=== PATIENT | female | born 1985 | race Caucasian/White ===

== ENCOUNTER 2016-08-27 12:23 | Emergency (ER) | payer BC ==
--- NOTE | 2016-08-27 12:50 | EDM.PDOC ---
ED HPI GENERAL MEDICAL PROBLEM - General Chief Complaint: General Stated Complaint: LIGHT HEADED Time Seen by Provider: 08/27/16 12:47 Source of Information: Reports: Patient, RN notes reviewed History Limitations: Reports: No limitations - History of Present Illness INITIAL COMMENTS - FREE TEXT/NARRATIVE: 31-year-old female presents emergency department today with complaints of lightheadedness bilateral numbness and tingling she feels like she's going to pass out and she was walking down the [place] does have allergy to celery however she did not eat any salary but there is a potential for exposure from cross contamination from the kitchen she denies any shortness of breath or chest pain no throat swelling Bilateral Hand Pain Score (Numeric/FACES): 0 - Related Data Allergies Allergy/AdvReac Type Severity Reaction Status Date / Time celery [Celery] Allergy Airway Verified 08/27/16 12:52 Tightness valdecoxib [From Bextra] Allergy Hives Verified 08/27/16 12:52 Home Meds: Home Meds Levalbuterol Tartrate [Xopenex HFA] 2 inhalation INH ASDIRECTED PRN 12/12/13 [ History] Past Medical History Respiratory History: Reports: Asthma Genitourinary History: Reports: Renal calculus 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 OB/BYN History: cystic ovary Other Musculoskeletal History: ACL tear - Infectious Disease History Infectious Disease History: Reports: Chicken pox - Past Surgical History Musculoskeletal Surgical History: Reports: Other (see below) Other Musculoskeletal Surgeries/Procedures:: ACL repair Social & Family History - Family History Cardiac: Reports: Hypertension - Tobacco Use Smoking Status *Q: Current Every Day Smoker Years of Tobacco use: 10 Packs/Tins Daily: 0.5 Used Tobacco, but Quit: No Second Hand Smoke Exposure: Yes - Alcohol Use Days Per Week of Alcohol Use: 2 Number of Drinks Per Day: 3 Total Drinks Per Week: 6 - Recreational Drug Use Recreational Drug Use: No ED ROS GENERAL - Review of Systems Review Of Systems: See Below Constitutional: Reports: no symptoms HEENT: Reports: No symptoms Respiratory: Reports: no symptoms Cardiovascular: Reports: Syncope GI/Abdominal: Reports: No symptoms : Reports: no symptoms Musculoskeletal: Reports: no symptoms Skin: Reports: no symptoms Neurological: Reports: tingling Psychiatric: Reports: No symptoms ED EXAM, GENERAL - Physical Exam Exam: See Below Free Text/Narrative:: General: female, not in any distress, alert and oriented x3 HEENT: head is atraumatic normocephalic, eyes pupils equal round reactive to light and accommodation sclera clear no conjunctivitis appreciated. Ears tympanic membranes clear and davey landmarks and light reflex are present bilaterally canals are clear. Nose no septal deviation, nares are clear, no blood present. Mouth mucosa is moist and pink no erythema or exudate noted in soft palate, tongue is midline uvula is midline, dentition is intact. Neck: Supple no thyromegaly no tracheal deviation. Nodes: Cervical nodes subclavicular nodes nontender no palpable lymphadenopathy noted. Lungs: clear to auscultation bilaterally with symmetrical respirations, no adventitious noise appreciated. CV: Regular rate and rhythm S1 and S2 appreciated no murmurs rubs or gallops noted. Abdomen: Soft, nontender, no palpable masses or organomegaly appreciated, no distention no guarding bowel sounds are present, . Neuro: Cranial nerves II through XII grossly intact Skin: Warm and dry, intact Extremities: No lower extremity edema appreciated, Course - Vital Signs Last Recorded V/S: Last Vital Signs Temp 97.9 F 08/27/16 12:47 Pulse 91 08/27/16 12:47 Resp BP 167/109 H 08/27/16 12:47 Pulse Ox 99 08/27/16 12:47 - Orders/Labs/Meds Orders: Active Orders 24 hr Category Date Time Status Cardiac Monitoring [RC] .As Directed Care 08/27/16 13:02 Active EKG Documentation Completion [RC] ASDIRECTED Care 08/27/16 13:03 Active CULTURE URINE [RM] Urgent Lab 08/27/16 14:16 Uncollected CULTURE URINE [RM] Urgent Lab 08/27/16 14:22 Uncollected EKG 12 Lead [EK] Stat Ther 08/27/16 13:03 Ordered Labs: Laboratory Tests 08/27/16 08/27/16 08/27/16 Range/Units 13:10 13:10 13:57 WBC 9.7 (4.5-11.0) K/uL RBC 4.44 (3.30-5.50) M/uL Hgb 14.4 (12.0-15.0) g/dL Hct 44.3 (36.0-48.0) % MCV 100 H (80-98) fL MCH 32 H (27-31) pg MCHC 33 (32-36) % Plt Count 324 (150-400) K/uL Neut % (Auto) 73 H (36-66) % Lymph % (Auto) 18 L (24-44) % [place] % (Auto) 7 H (2-6) % Eos % (Auto) 1 L (2-4) % Baso % (Auto) 1 (0-1) % Sodium 139 L (140-148) mmol/L Potassium 3.9 (3.6-5.2) mmol/L Chloride 102 (100-108) mmol/L Carbon Dioxide 27 (21-32) mmol/L Anion Gap 13.9 (5.0-14.0) mmol/L BUN 12 (7-18) mg/dL Creatinine 1.1 H (0.6-1.0) mg/dL Est Cr Clr Drug Dosing 76.46 mL/min Estimated GFR (MDRD) 58 L (>60) Glucose 108 H (74-106) mg/dL Calcium 8.8 (8.5-10.1) mg/dL Total Bilirubin 0.4 D (0.2-1.0) mg/dL AST 45 H (15-37) U/L ALT 95 H (12-78) U/L Alkaline Phosphatase 38 L (46-116) U/L CK-MB (CK-2) 1.0 (0-3.6) mg/mL Troponin I < 0.017 (0.000-0.056) ng/mL Total Protein 7.6 (6.4-8.2) g/dL Albumin 4.0 (3.4-5.0) g/dL Globulin 3.6 H (2.3-3.5) g/dL Albumin/Globulin Ratio 1.1 L (1.2-2.2) Urine Color Yellow Urine Appearance Clear Urine pH 6.0 (4.5-8.0) Ur Specific [place] 1.015 (1.008-1.030) Urine Protein Negative (NEGATIVE) mg/dL Urine Glucose (UA) Normal (NEGATIVE) mg/dL Urine Ketones Negative (NEGATIVE) mg/dL Urine Occult Blood Large (NEGATIVE) Urine Nitrite Negative (NEGATIVE) Urine Bilirubin Negative (NEGATIVE) Urine Urobilinogen Normal (NORMAL) mg/dL Ur Leukocyte Esterase Moderate (NEGATIVE) Urine RBC 5-10 H (0-5) Urine WBC 10-20 H (0-5) Ur Epithelial Cells Few Amorphous Sediment Few Urine Bacteria Moderate Urine Mucus Few Meds: Medications Discontinued Medications Generic Name Dose Route Start Last Admin Trade Name Ashley PRN Reason Stop Dose Admin Al Hydroxide/Mg Hydroxide 15 0 ml 08/27/16 13:03 08/27/16 13:08 ml/ Lidocaine HCl 15 ml PO 08/27/16 13:04 30 ml ONETIME ONE Administration Departure - Departure Time of Disposition: 14:24 Disposition: Home, Self-Care 01 Condition: good Clinical Impression: Pre-syncope Forms: ED Department Discharge Additional Instructions: urine culture was added if this is abnormal we will contact you with appropriate antibiotics, Please followup with your primary care provider in 7 days if not better, please call return to the emergency department with worsening of symptoms. - My Orders Last 24 Hours: My Active Orders 08/27/16 13:02 Cardiac Monitoring [RC] .As Directed 08/27/16 13:03 EKG Documentation Completion [RC] ASDIRECTED EKG 12 Lead [EK] Stat 08/27/16 14:16 CULTURE URINE [RM] Urgent 08/27/16 14:22 CULTURE URINE [RM] Urgent - Assessment/Plan Last 24 Hours: My Active Orders 08/27/16 13:02 Cardiac Monitoring [RC] .As Directed 08/27/16 13:03 EKG Documentation Completion [RC] ASDIRECTED EKG 12 Lead [EK] Stat 08/27/16 14:16 CULTURE URINE [RM] Urgent 08/27/16 14:22 CULTURE URINE [RM] Urgent Plan: Assessment Acuity = acute Site and laterality = presyncopal event with numbness and tingling in the hands Etiology = unclear etiology possibly related to salary allergy Manifestations = all symptoms now resolved Location of injury = home Lab values = CBC, CMP troponin unremarkable, EKG demonstrates sinus rhythm no significant ST changesurinalysis did have 5-10 RBCs cyst with hematuria and 10- 20 WBCs consistent with pyuria cultures pending Plan she had improvement combination of Benadryl and GI cocktail all symptoms have resolved certainly this a possibility this may be related to her salary allergy and recommend watchful waiting at this time follow up with primary care 3-5 days if no improvement, urine cultures pendingWill contact if the culture is positive she is asymptomatic at this time Patient was in agreement with the plan all questions were answered, they were instructed to return to the emergency department or call for worsening symptoms. This note was dictated using [employer] voice recognition software please call with any questions.
[2016-08-27] MEDS ORDERED: Alum Hydrox/Mag Hydrox/Simeth 15 ML, Lidocaine 2% 15 ML PO ONE ×2 (13:03)
[2016-08-27 15:02] VITALS: BP 142/89
== END 2016-08-27 15:03 | disposition home or self-care (01) ==
LOC: JP.ED 12:23
DX: R55 Syncope and collapse (principal); J45.909 Unspecified asthma, uncomplicated; F17.210 Nicotine dependence, cigarettes, uncomplicated; Z88.8 Allergy status to other drugs, medicaments and biological substances; Z79.899 Other long term (current) drug therapy
CPT/HCPCS: 36415; 80053; 81001; 82553; 84484; 85025; 87086; 93005; 99284; A9270

== ENCOUNTER 2016-12-30 21:21 | Emergency (ER) | payer BC ==
[2016-12-30 21:47] VITALS: BP 166/92
[2016-12-30] MEDS ORDERED: Alum Hydrox/Mag Hydrox/Simeth 15 ML, Lidocaine 2% 15 ML PO ONE ×2 (22:20)
--- NOTE | 2016-12-30 22:55 | EDM.PDOC ---
ED HPI GENERAL MEDICAL PROBLEM - General Chief Complaint: General Stated Complaint: PAIN IN CHEST Time Seen by Provider: 12/30/16 22:20 Source of Information: Reports: Patient History Limitations: Reports: No Limitations - History of Present Illness INITIAL COMMENTS - FREE TEXT/NARRATIVE: This patient is in with intense epigastric pain which she has been struggling with for several weeks. She has had a gallbladder ultrasound which was negative , laboratory workup at the clinic which showed elevated LFTs but no other specific findings and she was started on Protonix and encouraged to eat. Today after eating she had increased pain and it's been bothering her all day. No significant radiation to her back. She tried some Pepto-Bismol without relief. No fevers or chills, some pain radiates up into the substernal chest. No shortness of breath. 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) (She tried Pepto-Bismol and took one dose of Protonix) epigastric Pain Score (Numeric/FACES): 7 - Related Data Allergies Allergy/AdvReac Type Severity Reaction Status Date / Time celery [Celery] Allergy Airway Verified 12/30/16 22:05 Tightness valdecoxib [From Bextra] Allergy Hives Verified 12/30/16 22:05 Home Meds: Home Meds Levalbuterol Tartrate [Xopenex HFA] 2 inhalation INH ASDIRECTED PRN 12/12/13 [ History] Omeprazole 40 mg PO DAILY 12/30/16 [History] Past Medical History HEENT History: Reports: Impaired Vision Respiratory History: Reports: Asthma Gastrointestinal History: Reports: Cholelithiasis Genitourinary History: Reports: Renal Calculus [employer]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 OB/BYN History: cystic ovary Other Musculoskeletal History: ACL tear - Infectious Disease History Infectious Disease History: Reports: Chicken Pox - Past Surgical History Musculoskeletal Surgical History: Reports: Other (See Below) Other Musculoskeletal Surgeries/Procedures:: ACL repair Social & Family History - Family History Cardiac: Reports: Hypertension - Tobacco Use Smoking Status *Q: Current Every Day Smoker Years of Tobacco use: 12 Packs/Tins Daily: 0.5 Used Tobacco, but Quit: No Second Hand Smoke Exposure: Yes - Caffeine Use Caffeine Use: Reports: Soda - Alcohol Use Days Per Week of Alcohol Use: 2 Number of Drinks Per Day: 3 Total Drinks Per Week: 6 - Recreational Drug Use Recreational Drug Use: No ED ROS GENERAL - Review of Systems Review Of Systems: See Below Constitutional: Denies: Fever, Chills HEENT: Reports: No Symptoms Respiratory: Reports: No Symptoms Cardiovascular: Reports: No Symptoms GI/Abdominal: Reports: Abdominal Pain Skin: Reports: No Symptoms Neurological: Reports: No Symptoms ED EXAM, GENERAL - Physical Exam Exam: See Below Exam Limited By: No Limitations General Appearance: Alert, Anxious, Mild Distress (Looks fairly uncomfortable) Eye Exam: Bilateral Eye: EOMI, Other (No jaundice) Respiratory/Chest: No Respiratory Distress Cardiovascular: Regular Rate, Rhythm GI/Abdominal: Soft, Tender (She is tender to palpation in the epigastric area) Course - Vital Signs Last Recorded V/S: Last Vital Signs Temp 97.9 F 12/30/16 21:45 Pulse 90 12/30/16 21:45 Resp 18 12/30/16 21:45 BP 166/92 H 12/30/16 21:45 Pulse Ox 98 12/30/16 21:45 - Orders/Labs/Meds Meds: Medications Discontinued Medications Generic Name Dose Route Start Last Admin Trade Name Ashley PRN Reason Stop Dose Admin Al Hydroxide/Mg Hydroxide 15 0 ml 12/30/16 22:20 12/30/16 22:31 ml/ Lidocaine HCl 15 ml PO 12/30/16 22:21 30 ml ONETIME ONE Administration - Re-Assessments/Exams Free Text/Narrative Re-Assessment/Exam: 12/31/16 02:49 A GI cocktail was given which gave her some relief. She was discharged with 6 hydrocodone to take for pain control, and no additional workup was needed as she has had a fairly complete workup to this point. She may need an EGD if she is not improving after a few more doses of Protonix. Departure - Departure Time of Disposition: 23:07 Disposition: Home, Self-Care 01 Condition: Good Clinical Impression: Abdominal pain Qualifiers: Abdominal location: epigastric Qualified Code(s): R10.13 - Epigastric pain Gastritis Qualifiers: Gastritis type: unspecified gastritis Chronicity: acute Gastritis bleeding: without bleeding Qualified Code(s): K29.00 - Acute gastritis without bleeding - Discharge Information Instructions: Gastritis, Adult, [id number], Abdominal Pain, Adult Referrals: Peter Pinto MD [Primary Care Provider] - Forms: ED Department Discharge Care Plan Goals: Continue with your Protonix, use hydrocodone for pain control tonight and recheck on Friday if not improving satisfactorily, return sooner if worsening or concerns.
== END 2016-12-30 23:05 | disposition home or self-care (01) ==
LOC: JP.ED 21:21
DX: R10.13 Epigastric pain (principal); H54.7 Unspecified visual loss; J45.909 Unspecified asthma, uncomplicated; F17.210 Nicotine dependence, cigarettes, uncomplicated; Z79.899 Other long term (current) drug therapy; Z98.890 Other specified postprocedural states
CPT/HCPCS: 99284; A9270

== ENCOUNTER 2017-05-12 07:31 | Emergency (ER) | payer BC, OTHER ==
[2017-05-12 07:47] VITALS: BP 152/96
[2017-05-12] MEDS ORDERED: Cyclobenzaprine 10 MG Tab PO ONE (08:00)
[2017-05-12] MEDS ORDERED: Ketorolac 60 MG/2 ML SDV IM ONE (08:01)
--- NOTE | 2017-05-12 08:03 | EDM.PDOC ---
ED HPI GENERAL MEDICAL PROBLEM - General Chief Complaint: Back Pain or Injury Stated Complaint: HURT BACK AT WORK Time Seen by Provider: 05/12/17 08:03 Source of Information: Reports: Patient History Limitations: Reports: No Limitations - History of Present Illness INITIAL COMMENTS - FREE TEXT/NARRATIVE: pt arrived with pain in the rt shoulder. 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 She now has pain in the rt post cervical area. Onset: Other (This started yesterday and has gotten worse after coming to work today. ) Duration: Hour(s): Location: Reports: Neck, Back Associated Symptoms: Reports: Other ( back pain over the rt shoulder. ) Right Back Pain Score (Numeric/FACES): 3 - Related Data Allergies Allergy/AdvReac Type Severity Reaction Status Date / Time celery [Celery] Allergy Airway Verified 05/12/17 09:29 Tightness valdecoxib [From Bextra] Allergy Hives Verified 05/12/17 09:29 Home Meds: Home Meds Levalbuterol Tartrate [Xopenex HFA] 2 inhalation INH ASDIRECTED PRN 12/12/13 [ History] Omeprazole 40 mg PO DAILY 12/30/16 [History] Past Medical History HEENT History: Reports: Impaired Vision Respiratory History: Reports: Asthma Gastrointestinal History: Reports: Cholelithiasis Genitourinary History: Reports: Renal Calculus 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 OB/BYN History: cystic ovary Other Musculoskeletal History: ACL tear - Infectious Disease History Infectious Disease History: Reports: Chicken Pox - Past Surgical History Musculoskeletal Surgical History: Reports: Other (See Below) Other Musculoskeletal Surgeries/Procedures:: ACL repair Social & Family History - Family History Cardiac: Reports: Hypertension - Tobacco Use Smoking Status *Q: Current Every Day Smoker Years of Tobacco use: 12 Packs/Tins Daily: 0.5 Used Tobacco, but Quit: No Second Hand Smoke Exposure: Yes - Caffeine Use Caffeine Use: Reports: Soda - Alcohol Use Days Per Week of Alcohol Use: 2 Number of Drinks Per Day: 3 Total Drinks Per Week: 6 - Recreational Drug Use Recreational Drug Use: No ED ROS GENERAL - Review of Systems Review Of Systems: See Below Constitutional: Reports: No Symptoms HEENT: Reports: No Symptoms Respiratory: Reports: No Symptoms Cardiovascular: Reports: No Symptoms Endocrine: Reports: No Symptoms GI/Abdominal: Reports: No Symptoms : Reports: No Symptoms Musculoskeletal: Reports: Other (pt has pain in her rt post cervical and pain by the left scapula) Skin: Reports: No Symptoms ED EXAM, UPPER BACK/NECK PAIN - Physical Exam Exam: See Below Text/Narrative:: pt arrived with pain in the rt post cervical area and pain in the area above the scapula. She was lifting a pt and she had the full weight of the pt go against her rt arm. She has gotten increased pain as the nite passed after the incident. Exam Limited By: No Limitations General Appearance: Alert, Anxious, Moderate Distress Ears Exam: Normal TMs Nose Exam: Normal Inspection Throat/Mouth Exam: Normal Inspection Head Exam: Atraumatic Neck Exam: Tenderness, Other (Pt has tenderness in the rt post cervical area. She has obvious muscle spasm present. ) Cardiovascular/Respiratory: Regular Rate, Rhythm GI/Abdominal: Soft, Non-Tender (Female) Exam: Deferred Rectal (Female) Exam: Deferred Back Exam: Normal Inspection Extremities: Other ( Pt does not have tenderness over the rt shoulder. ) Neurologic: Other ( Pt has normal strength and normal sensation. ) Psychiatric: Normal Affect Course - Vital Signs Last Recorded V/S: Last Vital Signs Temp 35.3 C 05/12/17 07:45 Pulse 76 05/12/17 07:45 Resp 14 05/12/17 07:45 BP 152/96 H 05/12/17 07:45 Pulse Ox 95 05/12/17 07:45 - Orders/Labs/Meds Meds: Medications Discontinued Medications Generic Name Dose Route Start Last Admin Trade Name Ashley PRN Reason Stop Dose Admin Cyclobenzaprine HCl 5 mg 05/12/17 08:00 05/12/17 08:16 Flexeril PO 05/12/17 08:01 5 mg ONETIME ONE Administration Ketorolac Tromethamine 60 mg 05/12/17 08:01 05/12/17 08:16 Toradol IM 05/12/17 08:02 60 mg ONETIME ONE Administration - Re-Assessments/Exams Free Text/Narrative Re-Assessment/Exam: 05/13/17 23:32 Pt was given torodol and flexeril with fair relief Departure - Departure Time of Disposition: 08:37 Disposition: Home, Self-Care 01 Condition: Fair Clinical Impression: Muscle spasm of right shoulder - Discharge Information Instructions: Muscle Cramps and Spasms, [id number] Referrals: Peter Pinto MD [Primary Care Provider] - Forms: ED Department Discharge Care Plan Goals: no work today, ice pack to the rt shoulder area. no work today, rest-- avoid lifting and pulling. Flexeril 10 mg bid to relax muscles, motrin 600mg tid, norco 5/325 q6h prn for pain
== END 2017-05-12 08:49 | disposition home or self-care (01) ==
LOC: JP.ED 07:31
DX: M62.838 Other muscle spasm (principal); F17.210 Nicotine dependence, cigarettes, uncomplicated; Z79.899 Other long term (current) drug therapy; Z88.8 Allergy status to other drugs, medicaments and biological substances
CPT/HCPCS: 96372; 99283; A9270; J1885

== ENCOUNTER 2017-05-20 14:17 | Emergency (ER) | payer OTHER ==
[2017-05-20 14:36] VITALS: BP 176/105
[2017-05-20] MEDS ORDERED: HYDROmorphone 0.5 MG/0.5 ML Syringe IM ONE (14:57)
--- NOTE | 2017-05-20 14:59 | EDM.PDOC ---
ED HPI GENERAL MEDICAL PROBLEM - General Chief Complaint: Back Pain or Injury Stated Complaint: BACK AND SHOULDER PAIN Time Seen by Provider: 05/20/17 14:58 Source of Information: Reports: Patient History Limitations: Reports: No Limitations - History of Present Illness INITIAL COMMENTS - FREE TEXT/NARRATIVE: pt had a previous ijury where she had supported almost the full weight on the rt arm when a pt was no longer supporting himself. Onset: Other ( Pt had recurrent pain today after lifting on a pt yesterday. ) Location: Reports: Neck, Back Associated Symptoms: Reports: No Other Symptoms RIGHT; SHOULDER Pain Score (Numeric/FACES): 8 - Related Data Allergies Allergy/AdvReac Type Severity Reaction Status Date / Time celery [Celery] Allergy Airway Verified 05/20/17 14:35 Tightness valdecoxib [From Bextra] Allergy Hives Verified 05/20/17 14:35 Home Meds: Home Meds Levalbuterol Tartrate [Xopenex HFA] 2 inhalation INH ASDIRECTED PRN 12/12/13 [ History] Omeprazole 40 mg PO DAILY 12/30/16 [History] Acetaminophen/HYDROcodone [[place] 325-5 MG] 1 tab PO Q4HR PRN 05/20/17 [History] Cyclobenzaprine [Flexeril] 10 mg PO Q6HR PRN 05/20/17 [History] Past Medical History HEENT History: Reports: Impaired Vision Respiratory History: Reports: Asthma Gastrointestinal History: Reports: Cholelithiasis Genitourinary History: Reports: Renal 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 OB/BYN History: cystic ovary Other Musculoskeletal History: ACL tear - Infectious Disease History Infectious Disease History: Reports: Chicken Pox - Past Surgical History Musculoskeletal Surgical History: Reports: Other (See Below) Other Musculoskeletal Surgeries/Procedures:: ACL repair Social & Family History - Family History Cardiac: Reports: Hypertension - Tobacco Use Smoking Status *Q: Current Every Day Smoker Years of Tobacco use: 12 Packs/Tins Daily: 0.5 Used Tobacco, but Quit: No Second Hand Smoke Exposure: Yes - Caffeine Use Caffeine Use: Reports: Soda - Alcohol Use Days Per Week of Alcohol Use: 2 Number of Drinks Per Day: 3 Total Drinks Per Week: 6 - Recreational Drug Use Recreational Drug Use: No ED ROS GENERAL - Review of Systems Review Of Systems: See Below Constitutional: Reports: No Symptoms HEENT: Reports: No Symptoms Respiratory: Reports: No Symptoms Cardiovascular: Reports: No Symptoms Endocrine: Reports: No Symptoms GI/Abdominal: Reports: No Symptoms : Reports: No Symptoms Musculoskeletal: Reports: Other ( Severe pain in the rt lower scapula area which radiates down the rt arm. She lifted yesterday and had increased pain since that time. ) Skin: Reports: No Symptoms ED EXAM, UPPER BACK/NECK PAIN - Physical Exam Exam: See Below Text/Narrative:: Pt arrived with seere pain by the rt [facility] area. She descrobes severe spasm Exam Limited By: No Limitations General Appearance: Alert, Anxious, Moderate Distress Ears Exam: Normal TMs Nose Exam: Normal Inspection Throat/Mouth Exam: Normal Inspection Head Exam: Atraumatic Neck Exam: Muscle Spasm, Other ( Pt has spasm by the rt shoulder blade and down the rt arm. ) Cardiovascular/Respiratory: Regular Rate, Rhythm GI/Abdominal: Soft, Non-Tender (Female) Exam: Deferred Rectal (Female) Exam: Deferred Back Exam: Normal Inspection Extremities: Normal Inspection Neurologic: Alert, Oriented x 3 Course - Vital Signs Last Recorded V/S: Last Vital Signs Temp 35.8 C 05/20/17 14:38 Pulse 128 H 05/20/17 14:38 Resp 18 05/20/17 14:38 BP 176/105 H 05/20/17 14:38 Pulse Ox 96 05/20/17 14:38 - Orders/Labs/Meds Orders: Active Orders 24 hr Category Date Time Status Cervical Spine Min 4V [CR] Stat Exams 05/20/17 14:53 Taken Thoracic Spine 3V [CR] Stat Exams 05/20/17 14:53 Taken Meds: Medications Discontinued Medications Generic Name Dose Route Start Last Admin Trade Name Freq PRN Reason Stop Dose Admin Diazepam 4 mg 05/20/17 14:56 05/20/17 15:05 Valium IVPUSH 05/20/17 14:57 4 mg ONETIME ONE Administration Hydromorphone HCl 0.5 mg 05/20/17 14:57 05/20/17 15:04 Dilaudid IM 05/20/17 14:58 0.5 mg ONETIME ONE Administration - Re-Assessments/Exams Free Text/Narrative Re-Assessment/Exam: 11/21/17 15:35 pt had cervical and thoracic spine series that showed good alignment and good interspaces. Pt was given dilaudid .5 and valium .4 im. She is more comfortable. Departure - Departure Time of Disposition: 15:36 Disposition: Home, Self-Care 01 Condition: Fair Clinical Impression: Right shoulder pain - Discharge Information Referrals: Peter Pinto MD [Primary Care Provider] - Forms: ED Department Discharge Care Plan Goals: no work tomorrow, keep appt with Dr Pinto, --tomorrow, consider a PT referal, Continue the flexeril and motrin and norco for pain, ice to the area, cont ortho referal if persistent problems. - My Orders Last 24 Hours: My Active Orders 05/20/17 14:53 Cervical Spine Min 4V [CR] Stat Thoracic Spine 3V [CR] Stat - Assessment/Plan Last 24 Hours: My Active Orders 05/20/17 14:53 Cervical Spine Min 4V [CR] Stat Thoracic Spine 3V [CR] Stat
--- NOTE | 2017-05-21 09:13 | CR ---
Cervical Spine Min 4V HISTORY: Pain COMPARISON: None FINDINGS: Mild degenerative change with anterior osteophyte formation at the C5-C6 level. No signific ant disc space narrowing. No fracture or subluxation seen.
--- NOTE | 2017-05-21 09:37 | CR ---
Thoracic Spine 3V HISTORY: Pain COMPARISON: Lateral chest radiograph 2015 FINDINGS: Very minimal degenerative osteophyte formation in the midthoracic spine. No acute fracture or subluxation. Very slight disc space narrowing T7-T8 and T8-T9 levels.
== END 2017-05-20 15:49 | disposition home or self-care (01) ==
LOC: JP.ED 14:17
DX: M25.511 Pain in right shoulder (principal); F17.210 Nicotine dependence, cigarettes, uncomplicated; J45.909 Unspecified asthma, uncomplicated; Z88.8 Allergy status to other drugs, medicaments and biological substances; Z91.018 Allergy to other foods
CPT/HCPCS: 72050; 72072; 96372; 96374; 99284; J1170; J3360

== ENCOUNTER 2017-09-09 21:17 | Emergency (ER) | payer OTHER ==
[2017-09-09 21:28] VITALS: BP 171/115
[2017-09-09] MEDS ORDERED: Sodium Chloride 0.9% 10 ML Syringe FLUSH PRN (22:54)
[2017-09-09] MEDS ORDERED: Ketorolac 30 MG/ML SDV IVPUSH ONE (22:55)
[2017-09-09] MEDS ORDERED: Lidocaine 5% 700 MG Patch TOP ONE (22:55)
[2017-09-09] MEDS ORDERED: Acetaminophen 1,000 MG in Premix Bag 1 BAG IV ONE (22:55)
[2017-09-09] MEDS ORDERED: oxyCODONE 5 MG Tab PO ONE (22:56)
--- NOTE | 2017-09-09 23:02 | EDM.PDOC ---
ED HPI GENERAL MEDICAL PROBLEM - General Chief Complaint: Upper Extremity Injury/Pain Stated Complaint: R SHOULDER PAIN Time Seen by Provider: 09/09/17 22:45 Source of Information: Reports: Patient, Old Records History Limitations: Reports: No Limitations - History of Present Illness INITIAL COMMENTS - FREE TEXT/NARRATIVE: 32 yo female with a pHx of right AC impingement and who is followed by a [place] orthopedist presents with an exacerbation of this pain. She denies recent injury. She drove herself to the ER and does not have anyone who can come to get her. She has taken a muscle relaxer and ibuprofen earlier today without relief. She reports pain now in the distribution of the R trapezius muscle and numbness and pain down the R arm. Her next orthopedic appt is in September. She reports a hx of a severe reaction to a steroid injection she got in the past into this area of her shoulder. She has not seen her primary care provider for this recently. Onset: Today (worse today) Onset Date: 09/09/17 Duration: Hour(s):, Getting Worse Location: Reports: Neck (right, posterior neck), Back (upper R back), Upper Extremity, Right (radiates all the way down the R arm. 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.) Associated Symptoms: Reports: No Other Symptoms Treatments RETURNING OFFICER: Reports: NSAIDS (no relief with ibuprofen earlier today.) - Related Data Allergies Allergy/AdvReac Type Severity Reaction Status Date / Time celery [Celery] Allergy Airway Verified 05/20/17 14:35 Tightness valdecoxib [From Bextra] Allergy Hives Verified 05/20/17 14:35 Home Meds: Home Meds Levalbuterol Tartrate [Xopenex HFA] 2 inhalation INH ASDIRECTED PRN 12/12/13 [ History] Omeprazole 40 mg PO DAILY 12/30/16 [History] Acetaminophen/HYDROcodone [[place] 325-5 MG] 1 tab PO Q4HR PRN 05/20/17 [History] Cyclobenzaprine [Flexeril] 10 mg PO Q6HR PRN 05/20/17 [History] Gabapentin [Neurontin] 300 mg PO BID PRN #14 capsule 09/09/17 [Rx] Past Medical History HEENT History: Reports: Impaired Vision Respiratory History: Reports: Asthma Gastrointestinal History: Reports: Cholelithiasis Genitourinary History: Reports: Renal Calculus 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 OB/BYN History: cystic ovary Other Musculoskeletal History: ACL tear - Infectious Disease History Infectious Disease History: Reports: Chicken Pox - Past Surgical History Musculoskeletal Surgical History: Reports: Other (See Below) Other Musculoskeletal Surgeries/Procedures:: ACL repair Social & Family History - Family History Cardiac: Reports: Hypertension - Tobacco Use Smoking Status *Q: Current Every Day Smoker Years of Tobacco use: 12 Packs/Tins Daily: 0.5 Used Tobacco, but Quit: No Second Hand Smoke Exposure: Yes - Caffeine Use Caffeine Use: Reports: Soda - Alcohol Use Days Per Week of Alcohol Use: 2 Number of Drinks Per Day: 3 Total Drinks Per Week: 6 - Recreational Drug Use Recreational Drug Use: No Review of Systems - Review of Systems Review Of Systems: See Below Constitutional: Reports: No Symptoms Respiratory: Reports: No Symptoms Cardiovascular: Reports: No Symptoms GI/Abdominal: Reports: No Symptoms Genitourinary: Reports: No Symptoms Musculoskeletal: Reports: Neck Pain, Shoulder Pain, Arm Pain ( and arm numbness. ) Skin: Reports: No Symptoms Neurological: Reports: Numbness (R arm) Psychiatric: Reports: No Symptoms ED EXAM, GENERAL - Physical Exam Exam: See Below Exam Limited By: No Limitations General Appearance: Alert, WD/WN, No Apparent Distress Eye Exam: Bilateral Eye: Normal Inspection Ears: Normal External Exam, Normal Canal, Hearing Grossly Normal Ear Exam: Bilateral Ear: Auricle Normal, Canal Normal Nose: Normal Inspection, Normal Mucosa Throat/Mouth: Normal Inspection, Normal Lips, Normal Oropharynx, Normal Voice, No Airway Compromise Head: Atraumatic, Normocephalic Neck: Normal Inspection, Supple, Non-Tender Respiratory/Chest: No Respiratory Distress, Lungs Clear, Normal Breath Sounds, No Accessory Muscle Use Cardiovascular: Regular Rate, Rhythm, No Edema GI/Abdominal: Normal Bowel Sounds, Soft, Non-Tender, No Distention Back Exam: Normal Inspection. No: CVA Tenderness (R), CVA Tenderness (L) Extremities: Normal Inspection, No Pedal Edema, Arm Pain (Has pain with even light touch to the R side of her neck, R post shoulder and entire R arm. ). No : Pedal Edema Neurological: Alert, Oriented, CN II-XII Intact, Normal Cognition, Other ( reports R arm numbness. ) Psychiatric: Normal Affect, Normal Mood Skin Exam: Warm, Dry, Intact, Normal Color, No Rash Lymphatic: No Adenopathy Course - Vital Signs Last Recorded V/S: Last Vital Signs Temp 35.3 C 09/09/17 21:27 Pulse 109 H 09/09/17 21:27 Resp 18 09/09/17 21:27 BP 171/115 H 09/09/17 21:27 Pulse Ox 95 09/09/17 21:27 - Orders/Labs/Meds Orders: Active Orders 24 hr Category Date Time Status Sodium Chloride 0.9% [Saline Flush] Med 09/09/17 22:54 Active 10 ml FLUSH ASDIRECTED PRN Saline Lock Insert [OM.PC] Routine Oth 09/09/17 22:54 Ordered Medication Orders Sodium Chloride (Saline Flush) 10 ml FLUSH ASDIRECTED PRN PRN Reason: Keep Vein Open Last Admin: 09/09/17 23:25 Dose: 10 ml Meds: Medications Generic Name Dose Route Start Last Admin Trade Name Freq PRN Reason Stop Dose Admin Sodium Chloride 10 ml 09/09/17 22:54 09/09/17 23:25 Saline Flush FLUSH 10 ml ASDIRECTED PRN Administration Keep Vein Open Discontinued Medications Generic Name Dose Route Start Last Admin Trade Name Freq PRN Reason Stop Dose Admin Gabapentin 300 mg 09/09/17 23:47 Neurontin PO 09/09/17 23:48 ONETIME ONE Acetaminophen 1,000 mg/ Premix 100 mls @ 400 mls/hr 09/09/17 22:55 09/09/17 23:19 IV 09/09/17 23:09 400 mls/hr NOW ONE Administration Ketorolac Tromethamine 30 mg 09/09/17 22:55 09/09/17 23:15 Toradol IVPUSH 09/09/17 22:56 30 mg ONETIME ONE Administration Lidocaine 700 mg 09/09/17 22:55 09/09/17 23:26 Lidoderm 5% TOP 09/09/17 22:56 700 mg ONETIME ONE Administration Oxycodone HCl 5 mg 09/09/17 22:56 09/09/17 23:26 Oxycodone PO 09/09/17 22:57 5 mg ONETIME ONE Administration Departure - Departure Time of Disposition: 23:51 Disposition: Home, Self-Care 01 Condition: Fair Clinical Impression: Cervical nerve root impingement - Discharge Information Prescriptions: Gabapentin [Neurontin] 300 mg PO BID PRN #14 capsule PRN Reason: Pain Referrals: Peter Pinto MD [Primary Care Provider] - Forms: ED Department Discharge, ED Return to Work/School Form Additional Instructions: Take ibuprofen 600 mg every 6 hrs with food. Add acetaminophen 1000 mg every 6 hrs for more pain relief. Take gabapentin 300 mg every 8-12 hrs as needed. F/U with your orthopedic surgeon BRIGHT. No driving when taking the gabapentin. - My Orders Last 24 Hours: My Active Orders 09/09/17 22:54 Sodium Chloride 0.9% [Saline Flush] 10 ml FLUSH ASDIRECTED PRN Saline Lock Insert [OM.PC] Routine - Assessment/Plan Last 24 Hours: My Active Orders 09/09/17 22:54 Sodium Chloride 0.9% [Saline Flush] 10 ml FLUSH ASDIRECTED PRN Saline Lock Insert [OM.PC] Routine
[2017-09-09] MEDS ORDERED: Gabapentin 300 MG Cap PO ONE (23:47)
== END 2017-09-10 00:18 | disposition home or self-care (01) ==
LOC: JP.ED 21:17
DX: M25.811 Other specified joint disorders, right shoulder (principal); J45.909 Unspecified asthma, uncomplicated; Z88.8 Allergy status to other drugs, medicaments and biological substances; Z79.899 Other long term (current) drug therapy; Z77.22 Contact with and (suspected) exposure to environmental tobacco smoke (acute) (chronic)
CPT/HCPCS: 96374; 96375; 99283; A9270; J0131; J1885; J7050

== ENCOUNTER 2018-11-18 00:22 | Emergency (ER) | payer OTHER ==
[2018-11-18 00:54] VITALS: BP 143/89
--- NOTE | 2018-11-18 01:01 | EDM.PDOC ---
ED HPI GENERAL MEDICAL PROBLEM - General Chief Complaint: Upper Extremity Injury/Pain Stated Complaint: SURGERY COMPLICATIONS ON RIGHT SHOULDER Time Seen by Provider: 11/18/18 00:55 Source of Information: Reports: Patient, RN Notes Reviewed History Limitations: Reports: No Limitations - History of Present Illness INITIAL COMMENTS - FREE TEXT/NARRATIVE: 33-year-old female resents to emergency department today concerned about blood clot in her right arm she is about one month out post surgery she has experienced swelling over the shoulder over the last several days she feels she is up about 9 pounds in weight no shortness of breath at this time 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 (see below) Other Treatments SHOWROOM EXECUTIVE DIRECTOR: Shoulder immobilizer Right Arm/Shoulder Pain Score (Numeric/FACES): 5 - Related Data Allergies Allergy/AdvReac Type Severity Reaction Status Date / Time celery [Celery] Allergy Airway Verified 11/18/18 00:36 Tightness valdecoxib [From Bextra] Allergy Hives Verified 11/18/18 00:36 cortisone AdvReac Swelling Verified 11/18/18 00:39 Home Meds: Home Meds Albuterol Sulfate [Albuterol Sulfate Hfa] 8.5 gm IH ASDIRECTED 11/18/18 [History ] Past Medical History HEENT History: Reports: Impaired Vision Respiratory History: Reports: Asthma Gastrointestinal History: Reports: Cholelithiasis Genitourinary History: Reports: Renal Calculus 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 September 19 right shoulder surgery Social & Family History - Family History Family Medical History: Noncontributory Cardiac: Reports: Hypertension - Tobacco Use Smoking Status *Q: Current Every Day Smoker Years of Tobacco use: 14 Packs/Tins Daily: 0.5 Used Tobacco, but Quit: No Second Hand Smoke Exposure: Yes - Caffeine Use Caffeine Use: Reports: None - Recreational Drug Use Recreational Drug Use: No Review of Systems - Review of Systems Review Of Systems: See Below Respiratory: Reports: No Symptoms Cardiovascular: Reports: No Symptoms Musculoskeletal: Reports: Shoulder Pain Skin: Reports: Other (Edema over right shoulder) ED EXAM, GENERAL - Physical Exam Exam: See Below Free Text/Narrative:: Examination the right shoulder I don't appreciate any erythema edema is difficult to determine for me radial pulses +2 she has limited range of motion secondary to recent surgery Exam Limited By: No Limitations General Appearance: Alert, WD/WN, No Apparent Distress Respiratory/Chest: No Respiratory Distress, Lungs Clear, Normal Breath Sounds, No Accessory Muscle Use, Chest Non-Tender Cardiovascular: Regular Rate, Rhythm, No Murmur Course - Vital Signs Last Recorded V/S: Last Vital Signs Temp 97.3 F 11/18/18 00:52 Pulse 110 H 11/18/18 00:52 Resp 12 11/18/18 00:52 BP 143/89 H 11/18/18 00:52 Pulse Ox 95 11/18/18 00:52 - Orders/Labs/Meds Labs: Laboratory Tests 11/18/18 11/18/18 11/18/18 Range/Units 00:58 00:58 00:58 WBC 8.2 (4.5-11.0) K/uL RBC 4.73 (3.30-5.50) M/uL Hgb 14.9 (12.0-15.0) g/dL Hct 45.5 (36.0-48.0) % MCV 96 (80-98) fL MCH 32 H (27-31) pg MCHC 33 (32-36) % Plt Count 349 (150-400) K/uL Neut % (Auto) 53 (36-66) % Lymph % (Auto) 33 (24-44) % [place]k % (Auto) 10 H (2-6) % Eos % (Auto) 4 (2-4) % Baso % (Auto) 1 (0-1) % D-Dimer, Quantitative < 100 (0.0-400.0) ng/mL Sodium 141 (140-148) mmol/L Potassium 3.5 L (3.6-5.2) mmol/L Chloride 104 (100-108) mmol/L Carbon Dioxide 24 (21-32) mmol/L Anion Gap 16.5 H (5.0-14.0) mmol/L BUN 14 (7-18) mg/dL Creatinine 0.8 (0.6-1.0) mg/dL Est Cr Clr Drug Dosing 103.55 mL/min Estimated GFR (MDRD) > 60 (>60) Glucose 111 H (74-106) mg/dL Calcium 8.8 (8.5-10.1) mg/dL Departure - Departure Time of Disposition: 01:35 Disposition: Home, Self-Care 01 Condition: Fair Clinical Impression: Edema of upper extremity - Discharge Information Referrals: PCP,None [Primary Care Provider] - Forms: ED Department Discharge Additional Instructions: Continue to use elevation and ice, recommend follow-up with your surgeon for further evaluation, call return to the emergency department worsening of symptoms - Assessment/Plan Plan: Assessment Acuity = acute Site and laterality = right upper extremity edema Etiology = probable post surgical change Manifestations = none Location of injury = Home Lab values = CBC, BMP, d-dimer all within normal limits Plan I did review lab work with her I do not feel this is a blood clot causing this trouble recommended she follow up with her surgeon for further evaluation call or return to emergency department with worsening of symptoms. This note was dictated using [employer] voice recognition software please call with any questions on syntax or grammar.
== END 2018-11-18 01:41 | disposition home or self-care (01) ==
LOC: JP.ED 00:22
DX: R60.0 Localized edema (principal); F17.210 Nicotine dependence, cigarettes, uncomplicated; J45.909 Unspecified asthma, uncomplicated; Z91.018 Allergy to other foods
CPT/HCPCS: 36415; 80048; 85025; 85379; 99283

== ENCOUNTER 2019-03-24 08:07 | Emergency (ER) | payer MEDICAID, OTHER ==
[2019-03-24 08:18] VITALS: BP 139/97; PULSE 82
[2019-03-24] MEDS ORDERED: Tetracaine HCl/PF 0.5% 4 ML Bottle EYERT ONE (08:55)
--- NOTE | 2019-03-24 09:37 | EDM.PDOC ---
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 Went home yesterday after work with scratchy throat - felt similar to when she has exposure to celery Then overnight/early this AM noticed some blurred vision in right eye Some associated pain, sensation similar to when she had a "gouge" on the eyeball. No ALMONTE. Described vision as blurred around the edges and normal in the middle Not sure if she can work today Throat feels better, no other concerns. 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 September 19 right shoulder surgery Social & Family History - Family History Family Medical History: Noncontributory Cardiac: Reports: Hypertension - Tobacco Use Smoking Status *Q: Current Every Day Smoker Years of Tobacco use: 10 Packs/Tins Daily: 0.5 - Caffeine Use Caffeine Use: Reports: Coffee, Soda - Recreational Drug Use Recreational Drug Use: No ED ROS GENERAL - Review of Systems Review Of Systems: See Below Constitutional: Reports: No Symptoms HEENT: Reports: Vision Change Respiratory: Reports: No Symptoms Cardiovascular: Reports: No Symptoms Endocrine: Reports: No Symptoms GI/Abdominal: Reports: No Symptoms : Reports: No Symptoms Musculoskeletal: Reports: No Symptoms Skin: Reports: No Symptoms Neurological: Reports: No Symptoms Psychiatric: Reports: No Symptoms Hematologic/Lymphatic: Reports: No Symptoms Immunologic: Reports: No Symptoms ED EXAM GENERAL W FULL EYE - Physical Exam Exam: See Below Exam Limited By: No Limitations General Appearance: Alert, No Apparent Distress Visual Acuity (R) 20/: 70 Visual Acuity (L) 20/: 40 IOP (R) in mmH IOP (L) in mmH IOP Measure with (Equipment): Tonopen Eyelids: Bilateral: Normal Appearance Conjunctiva & Sclera: Bilateral: Normal Appearance Cornea Exam: Bilateral: Normal Appearance Extraocular Movements: Bilateral: Intact Pupils: Normal Accommodation Ears: Normal External Exam Nose: Normal Inspection Throat/Mouth: Normal Inspection Head: Atraumatic Neck: Normal Inspection Respiratory/Chest: Lungs Clear Cardiovascular: Regular Rate, Rhythm GI/Abdominal: Non-Tender, No Distention Back Exam: Normal Inspection Extremities: Normal Inspection Neurological: Alert, Oriented, CN II-XII Intact, Other (fluid speech, moving all extremities, following commands, stable gait) Skin Exam: Warm, Dry Course - Vital Signs Last Recorded V/S: Last Vital Signs Temp 36.2 C 03/24/19 08:20 Pulse 82 03/24/19 08:20 Resp 16 03/24/19 08:20 BP 139/97 H 03/24/19 08:20 Pulse Ox 96 03/24/19 08:20 - Orders/Labs/Meds Meds: Medications Discontinued Medications Generic Name Dose Route Start Last Admin Trade Name Ashley PRN Reason Stop Dose Admin Tetracaine HCl 1 ml 03/24/19 08:55 03/24/19 09:23 Tetracaine 0.5% Steri-Unit Susan EYERT 03/24/19 08:56 3 drop ASDIRECTED ONE Administration - Re-Assessments/Exams Free Text/Narrative Re-Assessment/Exam: 34 yo presents with concerns of blurred vision in right eye She has concerns for possible allergic reaction to medication she handled at work - this seems unlikely with swelling, irritation, any other signs of this on exam Visual acuity mildly reduced on right eye. Having some mild discomfort which seems to sound like corneal irritation. Given discomfort, description of changes, normal neuro exam I don't think this is stroke Normal IOP - not acute glaucoma No foreign body, signs of conjunctival trauma or irritation on fluorescein exam. Although discomfort did seem to improve with tetracaine administration. Normal fundoscopic exam, although limited. Recommended patient call her opthamologist for urgent follow up today for comprehensive exam. Provided work note. 03/24/19 09:43 Departure - Departure Time of Disposition: 09:45 Disposition: Home, Self-Care 01 Clinical Impression: Change in vision - Discharge Information *PRESCRIPTION DRUG MONITORING PROGRAM REVIEWED*: No *COPY OF PRESCRIPTION DRUG MONITORING REPORT IN PATIENT DARYL: No Instructions: Visual Disturbances Referrals: PCP,None [Primary Care Provider] - Additional Instructions: Please urgently follow up with your ophthamologist as discussed.
== END 2019-03-24 09:54 | disposition home or self-care (01) ==
LOC: JP.ED 08:07
DX: H53.8 Other visual disturbances (principal); J45.909 Unspecified asthma, uncomplicated; F17.210 Nicotine dependence, cigarettes, uncomplicated; Z79.899 Other long term (current) drug therapy; Z88.8 Allergy status to other drugs, medicaments and biological substances
CPT/HCPCS: 99283

== ENCOUNTER 2019-12-24 | Emergency (ER) | payer MEDICAID, OTHER ==
[2019-12-24] MEDS ORDERED: Lactated Ringers 1,000 ML IV ONE (00:01)
[2019-12-24] MEDS ORDERED: Metoclopramide 10 MG/2 ML SDV IVPUSH ONE (00:02)
[2019-12-24 00:15] VITALS: BP 152/104; PULSE 114
[2019-12-24] MEDS: HYDROmorphone 0.5 MG/0.5 ML Syringe IVPUSH ONE ×2 (00:37→00:47)
--- NOTE | 2019-12-24 00:43 | EDM.PDOC ---
ED HPI GENERAL MEDICAL PROBLEM - General Chief Complaint: Abdominal Pain Stated Complaint: VOMITING,ABD PAIN Time Seen by Provider: 12/24/19 00:10 Source of Information: Reports: Patient, Old Records, RN History Limitations: Reports: No Limitations - History of Present Illness INITIAL COMMENTS - FREE TEXT/NARRATIVE: 34 yo female here with progressive RUQ abdominal pain associated with nausea and vomiting x 3 days. Has not been to the clinic. No diarrhea or hematemesis. No fever. No hx of any abdominal surgeries. Hx of heavy ETOH use is suspected. Onset: Gradual Onset Date: 12/21/19 Duration: Day(s): (3), Getting Worse Location: Reports: Abdomen Quality: Reports: Ache Severity: Moderate Improves with: Reports: None Worsens with: Reports: Other (? time) Context: Reports: Other (See HPI) Associated Symptoms: Reports: Nausea/Vomiting. 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: Other (see below) (none) right upper abd Pain Score (Numeric/FACES): 7 - Related Data Allergies Allergy/AdvReac Type Severity Reaction Status Date / Time celery [Celery] Allergy Airway Verified 12/24/19 00:02 Tightness valdecoxib [From Bextra] Allergy Hives Verified 12/24/19 00:02 cortisone AdvReac Swelling Verified 12/24/19 00:02 Home Meds: Home Meds Albuterol Sulfate [Albuterol Sulfate Hfa] 8.5 gm IH ASDIRECTED 11/18/18 [History] Aluminum Chloride [Drysol] 1 dose TOP ASDIRECTED 12/24/19 [History] traZODone HCl [Trazodone HCl] 50 mg PO BEDTIME 12/24/19 [History] Past Medical History HEENT History: Reports: Impaired Vision Respiratory History: Reports: Asthma Gastrointestinal History: Reports: Cholelithiasis Genitourinary History: Reports: Renal Calculus HOUSEKEEPING AID History: Reports: Other HOUSEKEEPING AID History: cystic ovary Other Musculoskeletal History: ACL tear - Infectious Disease History Infectious Disease History: Reports: Chicken Pox - Past Surgical History HEENT Surgical History: Reports: Other (See Below) Other HEENT Surgeries/Procedures: wisdom teeth Female Surgical History: Reports: Other (See Below) Other Female Surgeries/Procedures: IUD placed 11/10/2019 Musculoskeletal Surgical History: Reports: Shoulder Surgery, Other (See Below) Other Musculoskeletal Surgeries/Procedures:: ACL repair. September 19 right shoulder surgery Social & Family History - Family History Family Medical History: Noncontributory Cardiac: Reports: Hypertension - Tobacco Use Smoking Status *Q: Current Every Day Smoker Years of Tobacco use: 15 Packs/Tins Daily: 0.5 - Caffeine Use Caffeine Use: Reports: None - Recreational Drug Use Recreational Drug Use: No ED ROS GENERAL - Review of Systems Review Of Systems: See Below Constitutional: Reports: No Symptoms HEENT: Reports: No Symptoms Respiratory: Reports: No Symptoms Cardiovascular: Reports: No Symptoms GI/Abdominal: Reports: Abdominal Pain, Nausea, Vomiting. Denies: Black Stool, Bloody Stool, Constipation, Diarrhea, Distension, Flatus, Hematemesis, Hematochezia, Melena : Reports: No Symptoms Musculoskeletal: Reports: No Symptoms Skin: Reports: No Symptoms Neurological: Reports: No Symptoms ED EXAM, GI/ABD - Physical Exam Exam: See Below Exam Limited By: No Limitations General Appearance: Alert, WD/WN, No Apparent Distress Eyes: Bilateral: Normal Appearance Ears: Normal External Exam, Normal Canal, Hearing Grossly Normal Nose: Normal Inspection, Normal Mucosa Throat/Mouth: Normal Inspection, Normal Lips, Normal Oropharynx, Normal Voice, No Airway Compromise Head: Atraumatic, Normocephalic Neck: Normal Inspection Respiratory/Chest: No Respiratory Distress, Lungs Clear, Normal Breath Sounds, No Accessory Muscle Use Cardiovascular: Regular Rate, Rhythm, No Edema GI/Abdominal Exam: Normal Bowel Sounds, Soft, No Distention, Tender (RUQ). No: Non-Tender, Distended, Guarding, Rigid, Rebound Back Exam: Normal Inspection. No: CVA Tenderness (R), CVA Tenderness (L) Extremities: Normal Inspection, Normal Range of Motion, Non-Tender, No Pedal Edema Neurological: Alert, Oriented, CN II-XII Intact, Normal Cognition, No Motor/Sensory Deficits Psychiatric: Normal Affect, Normal Mood Skin Exam: Warm, Dry, Intact, Normal Color, No Rash Course - Vital Signs Last Recorded V/S: Last Vital Signs Temp 36.5 C 12/24/19 00:14 Pulse 114 H 12/24/19 00:14 Resp 22 H 12/24/19 00:14 BP 152/104 H 12/24/19 00:14 Pulse Ox 96 12/24/19 00:14 - Orders/Labs/Meds Labs: Laboratory Tests 12/24/19 12/24/19 Range/Units 00:25 00:25 WBC 9.3 (4.5-11.0) K/uL RBC 4.61 (3.30-5.50) M/uL Hgb 15.1 H (12.0-15.0) g/dL Hct 45.4 (36.0-48.0) % MCV 99 H (80-98) fL MCH 33 H (27-31) pg MCHC 33 (32-36) % Plt Count 320 (150-400) K/uL Sodium 142 (140-148) mmol/L Potassium 3.3 L (3.6-5.2) mmol/L Chloride 106 (100-108) mmol/L Carbon Dioxide 19 L (21-32) mmol/L Anion Gap 20.3 H (5.0-14.0) mmol/L BUN 12 (7-18) mg/dL Creatinine 0.9 (0.6-1.0) mg/dL Est Cr Clr Drug Dosing 91.18 mL/min Estimated GFR (MDRD) > 60 (>60) Glucose 102 (74-106) mg/dL Calcium 8.9 (8.5-10.1) mg/dL Total Bilirubin 0.3 (0.2-1.0) mg/dL AST 63 H (15-37) U/L ALT 91 H (12-78) U/L Alkaline Phosphatase 67 D (46-116) U/L Total Protein 8.1 (6.4-8.2) g/dL Albumin 4.3 (3.4-5.0) g/dL Globulin 3.8 H (2.3-3.5) g/dL Albumin/Globulin Ratio 1.1 L (1.2-2.2) Lipase 310 (73-393) U/L Meds: Medications Discontinued Medications Generic Name Dose Route Start Last Admin Trade Name Freq PRN Reason Stop Dose Admin Hydromorphone HCl 0.5 mg 12/24/19 00:18 12/24/19 00:47 Dilaudid IVPUSH 12/24/19 00:19 Not Given ONETIME ONE Lactated Ringer's 1,000 mls @ 1,000 mls/hr 12/24/19 00:01 12/24/19 00:30 Ringers, Lactated IV 12/24/19 01:00 1,000 mls/hr BOLUS ONE Administration Metoclopramide HCl 10 mg 12/24/19 00:02 12/24/19 00:30 Reglan IVPUSH 12/24/19 00:03 10 mg ONETIME ONE Administration Potassium Chloride 30 meq 12/24/19 01:10 Potassium Chloride PO 12/24/19 01:11 ONETIME ONE - Re-Assessments/Exams Free Text/Narrative Re-Assessment/Exam: 12/24/19 01:14 Was extremely anxious to leave from early on in her ER course. Wanted to leave even before any of her tests were back. Departure - Departure Time of Disposition: 01:15 Disposition: Home, Self-Care 01 Condition: Fair Clinical Impression: Hypokalemia, Elevated LFTs, RUQ abdominal pain - Discharge Information *PRESCRIPTION DRUG MONITORING PROGRAM REVIEWED*: No *COPY OF PRESCRIPTION DRUG MONITORING REPORT IN PATIENT DARYL: No Instructions: Nausea and Vomiting, Adult, [id number], Abdominal Pain, Adult Referrals: PCP,None [Primary Care Provider] - Forms: ED Department Discharge Additional Instructions: Use Zofran every 6-8 hrs as needed for nausea control. See your doctor later today to discuss the need for a gallbladder ultrasound. Return as needed. Sepsis Event Note (ED) - Evaluation Sepsis Screening Result: No Definite Risk - Focused Exam Vital Signs: Vital Signs Temp Pulse Resp BP Pulse Ox 12/24/19 00:14 36.5 C 114 H 22 H 152/104 H 96 12/24/19 00:13 36.5 C 114 H 22 H 152/104 H 96
[2019-12-24] MEDS ORDERED: Potassium Chloride 10 MEQ Cap.ER PO ONE (01:10)
== END 2019-12-24 01:21 | disposition home or self-care (01) ==
LOC: JP.ED
DX: R10.11 Right upper quadrant pain (principal); E87.6 Hypokalemia; R79.89 Other specified abnormal findings of blood chemistry; F17.210 Nicotine dependence, cigarettes, uncomplicated; Z88.8 Allergy status to other drugs, medicaments and biological substances; Z91.018 Allergy to other foods
CPT/HCPCS: 36415; 80053; 83690; 85027; 96361; 96374; 99283; 99284; A9270; J2765; J7120; J1170

== ENCOUNTER 2022-07-09 19:26 | Emergency (ER) | payer OTHER ==
[2022-07-09] MEDS ORDERED: methylPREDNISolone Sodium Succinate 125 MG/2 ML SDV IM ONE (19:46)
[2022-07-09 20:38] VITALS: BP 156/96; PULSE 70
== END 2022-07-09 21:11 | disposition home or self-care (01) ==
LOC: JP.ED 19:26
DX: T78.3XXA Angioneurotic edema, initial encounter (principal); J45.909 Unspecified asthma, uncomplicated; I10 Essential (primary) hypertension; F17.210 Nicotine dependence, cigarettes, uncomplicated; Z88.8 Allergy status to other drugs, medicaments and biological substances; Z79.899 Other long term (current) drug therapy
CPT/HCPCS: 96372; 99283; J2930

== ENCOUNTER 2023-01-14 19:35 | Emergency (ER) | payer OTHER ==
[2023-01-14 20:24] VITALS: BP 129/86; PULSE 123
[2023-01-14] MEDS ORDERED: Sodium Chloride 0.9% 10 ML Syringe FLUSH PRN (20:24)
[2023-01-14] MEDS: HYDROmorphone 0.5 MG/0.5 ML Syringe IM ONE ×2 (20:41→20:55)
[2023-01-14] MEDS ORDERED: Sodium Chloride 0.9% 50 ML IV SCH (20:45)
[2023-01-14] MEDS ORDERED: Iopamidol 612 MG/ML 100 ML Bottle IV SCH (20:45)
[2023-01-14] MEDS ORDERED: HYDROmorphone 0.5 MG/0.5 ML Syringe IVPUSH ONE (20:54)
[2023-01-14] MEDS ORDERED: tiZANidine 2 MG Tab PO STA (22:40)
== END 2023-01-14 23:31 | disposition home or self-care (01) ==
LOC: JP.ED 19:35
DX: S80.12XA Contusion of left lower leg, initial encounter (principal); I10 Essential (primary) hypertension; Z91.018 Allergy to other foods; Z88.8 Allergy status to other drugs, medicaments and biological substances; Z79.899 Other long term (current) drug therapy
CPT/HCPCS: 73701; 93971; 96374; 99283; A9270; J1170; J3490; Q9967

== ENCOUNTER 2023-07-24 00:37 | Emergency (ER) | payer OTHER ==
[2023-07-24] MEDS ORDERED: Ketorolac 30 MG/ML SDV IM ONE (01:03)
[2023-07-24] MEDS ORDERED: Ketorolac 30 MG/ML SDV IVPUSH ONE (01:06)
[2023-07-24 01:13] LABS: BASOPHILS ABSOLUTE AUTO 0.05 K/uL (0.00-0.10); BASOPHILS PERCENT AUTO 0.4 % (0.1-1.3); EOSINOPHILS ABSOLUTE AUTO 0.28 K/uL (0.00-0.40); EOSINOPHILS PERCENT AUTO 2.2 % (0.0-5.4); HEMATOCRIT 46.2 % (34.3-46.0); IMMATURE GRAN ABSOLUTE AUTO 0.07 K/uL (0.00-0.23); IMMATURE GRAN PERCENT AUTO 0.5 % (0.0-0.7); LYMPHOCYTES ABSOLUTE AUTO 3.68 K/uL (0.8-3.3); LYMPHOCYTES PERCENT AUTO 28.8 % (11.4-47.7); MEAN CORPUSCULAR HEMOGLOBIN 33.3 pg (31.6-35.5); MEAN CORPUSCULAR HGB CONC 34.6 g/dL (31.6-35.5); MONOCYTES ABSOLUTE AUTO 0.88 K/uL (0.20-0.90); MONOCYTES PERCENT AUTO 6.9 % (3.3-12.6); NEUTROPHILS ABSOLUTE AUTO 7.84 K/uL (1.0-7.6); NEUTROPHILS PERCENT AUTO 61.2 % (40.0-78.1); PLATELET COUNT,PLT 364 K/uL (130-375); RED BLOOD CELL COUNT 4.81 M/uL (3.77-5.24); WHITE BLOOD CELL COUNT,WBC 12.8 K/uL (3.2-11.0)
[2023-07-24] MEDS ORDERED: Sodium Chloride 0.9% 1,000 ML IV SCH (01:15)
[2023-07-24 01:17] LABS: APPEARANCE,URINE CLEAR (CLEAR); BILIRUBIN,URINE NEGATIVE (NEGATIVE); COLOR,URINE YELLOW (YELLOW); GLUCOSE,URINE NEGATIVE (NEGATIVE); KETONES,URINE NEGATIVE (NEGATIVE); LEUKOCYTE ESTERASE,URINE TRACE (NEGATIVE); NITRITE,URINE NEGATIVE (NEGATIVE); OCCULT BLOOD,URINE SMALL (NEGATIVE); PH,URINE 5.5 (5.0-8.0); PROTEIN,URINE TRACE mg/dL (NEGATIVE); UROBILINOGEN,URINE 0.2 EU/dL (0.2-1.0)
[2023-07-24 01:23] LABS: A/G RATIO 0.9 (1.2-2.2); ALANINE AMINOTRANSFERASE,ALT 237 U/L (12-78); ALBUMIN 3.7 g/dL (3.4-5.0); ALKALINE PHOSPHATASE 80 U/L (46-116); ASPARTATE AMNIOTRANSFERASE,AST 58 U/L (15-37); BILIRUBIN TOTAL 0.2 mg/dL (0.2-1.0); BLOOD UREA NITROGEN,BUN 15 mg/dL (7-18); CALCIUM 8.2 mg/dL (8.5-10.1); CARBON DIOXIDE,CO2 25 mmol/L (21-32); CHLORIDE,CL 97 mmol/L (100-108); CREATININE 0.8 mg/dL (0.6-1.0); EST CRCL DRUG DOSING (CG) 98.67 mL/min; ESTIMATED GFR 96 mL/min (>60); GLUCOSE RANDOM 190 mg/dL (74-106); POTASSIUM,K 3.3 mmol/L (3.6-5.2); PROTEIN TOTAL,TP 7.8 g/dL (6.4-8.2); SODIUM,NA 135 mmol/L (140-148)
[2023-07-24] MEDS ORDERED: Iopamidol 612 MG/ML 100 ML Bottle IV STA (01:24)
[2023-07-24] MEDS ORDERED: Sodium Chloride 0.9% 50 ML IV STA (01:25)
[2023-07-24 01:27] LABS: AMORPHOUS SEDIMENT,URINE FEW; BACTERIA,URINE FEW; EPITHELIAL CELLS,URINE MODERATE; MUCUS,URINE NOT SEEN; RBC,URINE 0-5 (0-5); WBC,URINE 0-5 (0-5)
[2023-07-24 01:28] LABS: ANION GAP 16.3 mmol/L (5.0-14.0)
[2023-07-24] MEDS ORDERED: HYDROmorphone 0.5 MG/0.5 ML Syringe IVPUSH ONE (01:55)
[2023-07-24] MEDS ORDERED: Ondansetron 4 MG/2 ML SDV IVPUSH ONE (02:06)
[2023-07-24 04:20] VITALS: BP 98/51; PULSE 86
== END 2023-07-24 04:20 | disposition home or self-care (01) ==
LOC: JP.ED 00:37
DX: R10.84 Generalized abdominal pain (principal); I10 Essential (primary) hypertension; J45.909 Unspecified asthma, uncomplicated; Z79.899 Other long term (current) drug therapy; Z88.8 Allergy status to other drugs, medicaments and biological substances
CPT/HCPCS: 36415; 74177; 80053; 80307; 81001; 83605; 84145; 85025; 96361; 96374; 96375; 99284; J1170; J1885; J2405; J3490; J7030; Q9967

== ENCOUNTER 2023-08-13 08:10 | Day surgery (SDC) | payer OTHER ==
[2023-08-13] MEDS: Lactated Ringers 1,000 ML IV SCH (08:58)
[2023-08-13] MEDS ORDERED: fentaNYL 100 MCG/2 ML SDV ONE (10:22)
[2023-08-13] MEDS ORDERED: Midazolam 1 MG/ML 2 ML SDV ONE (10:22)
[2023-08-13] MEDS ORDERED: Propofol 200 MG/20 ML SDV ONE ×2 (10:22→10:40)
[2023-08-13 11:52] VITALS: BP 144/91; PULSE 92
== END 2023-08-13 11:56 | disposition home or self-care (01) ==
LOC: JP.SDS 08:10
PROVIDERS: ATTEND Student in an Organized Health Care Education/Training Program
DX: K21.00 Gastro-esophageal reflux disease with esophagitis, without bleeding (principal); K22.89 Other specified disease of esophagus; I10 Essential (primary) hypertension; J45.909 Unspecified asthma, uncomplicated; F41.9 Anxiety disorder, unspecified
CPT/HCPCS: 43239; 88305; 88313; 88342; J2250; J2704; J3010; J7120

== ENCOUNTER 2023-10-30 19:40 | Emergency (ER) | payer OTHER ==
[2023-10-30] MEDS: diphenhydrAMINE 50 MG/ML SDV IVPUSH ONE (19:52)
[2023-10-30] MEDS: EPINEPHrine 1 MG/ML SDV SUBCUT ONE (19:52)
[2023-10-30] MEDS: methylPREDNISolone Sodium Succinate 125 MG/2 ML SDV IVPUSH ONE (19:54)
[2023-10-30] MEDS: LORazepam 2 MG/ML SDV IVPUSH ONE ×2 (20:02→20:37)
[2023-10-30 21:31] LABS: BASOPHILS ABSOLUTE AUTO 0.08 K/uL (0.00-0.10); BASOPHILS PERCENT AUTO 0.9 % (0.1-1.3); EOSINOPHILS ABSOLUTE AUTO 0.22 K/uL (0.00-0.40); EOSINOPHILS PERCENT AUTO 2.5 % (0.0-5.4); HEMATOCRIT 43.6 % (34.3-46.0); HEMOGLOBIN 15.2 g/dL (11.2-15.5); IMMATURE GRAN ABSOLUTE AUTO 0.03 K/uL (0.00-0.23); IMMATURE GRAN PERCENT AUTO 0.3 % (0.0-0.7); LYMPHOCYTES ABSOLUTE AUTO 1.78 K/uL (0.8-3.3); LYMPHOCYTES PERCENT AUTO 20.3 % (11.4-47.7); MEAN CORPUSCULAR HEMOGLOBIN 33.7 pg (31.6-35.5); MEAN CORPUSCULAR HGB CONC 34.9 g/dL (31.6-35.5); MEAN CORPUSCULAR VOLUME 96.7 fL (81.4-99.0); MONOCYTES ABSOLUTE AUTO 0.34 K/uL (0.20-0.90); MONOCYTES PERCENT AUTO 3.9 % (3.3-12.6); NEUTROPHILS ABSOLUTE AUTO 6.33 K/uL (1.0-7.6); NEUTROPHILS PERCENT AUTO 72.1 % (40.0-78.1); PLATELET COUNT,PLT 300 K/uL (130-375); RED BLOOD CELL COUNT 4.51 M/uL (3.77-5.24); WHITE BLOOD CELL COUNT,WBC 8.8 K/uL (3.2-11.0)
[2023-10-30 21:51] LABS: ALANINE AMINOTRANSFERASE,ALT 151 U/L (12-78); ALKALINE PHOSPHATASE 78 U/L (46-116); ASPARTATE AMNIOTRANSFERASE,AST 86 U/L (15-37); BILIRUBIN TOTAL 0.5 mg/dL (0.2-1.0); BLOOD UREA NITROGEN,BUN 9 mg/dL (7-18); CALCIUM 8.9 mg/dL (8.5-10.1); CARBON DIOXIDE,CO2 21 mmol/L (21-32); CHLORIDE,CL 99 mmol/L (100-108); CREATININE 0.9 mg/dL (0.6-1.0); ESTIMATED GFR 83 mL/min (>60); GLUCOSE RANDOM 106 mg/dL (74-106); MAGNESIUM 1.3 mg/dL (1.8-2.4); SODIUM,NA 138 mmol/L (140-148)
[2023-10-30 21:56] LABS: ANION GAP 20.6 mmol/L (5.0-14.0); POTASSIUM,K 2.6 mmol/L (3.6-5.2)
[2023-10-30] MEDS: Magnesium Sulfate/Water 4 GM in Premix Bag 1 BAG IV ONE (22:24)
[2023-10-30] MEDS: Potassium Chloride 10 MEQ in Premix Bag 1 BAG IV ONE (22:34)
[2023-10-30] MEDS: Magnesium Sulfate/Water 2 GM in Premix Bag 1 BAG IV ONE ×2 (22:35→22:44)
[2023-10-30] MEDS: Magnesium Oxide 400 MG Tab PO ONE (23:01)
[2023-10-30] MEDS: Potassium Chloride 20 MEQ Tab.ER PO ONE (23:01)
[2023-10-30 23:53] VITALS: BP 123/78; PULSE 118
== END 2023-10-30 23:50 | disposition home or self-care (01) ==
LOC: JP.ED 19:40
DX: T78.40XA Allergy, unspecified, initial encounter (principal); E87.6 Hypokalemia; E83.42 Hypomagnesemia; I10 Essential (primary) hypertension; J45.909 Unspecified asthma, uncomplicated; K21.9 Gastro-esophageal reflux disease without esophagitis; E11.9 Type 2 diabetes mellitus without complications; Z91.018 Allergy to other foods; Z88.8 Allergy status to other drugs, medicaments and biological substances; Z79.51 Long term (current) use of inhaled steroids; Z79.899 Other long term (current) drug therapy
CPT/HCPCS: 36415; 80053; 83735; 85025; 96365; 96372; 96375; 96376; 99283; 99284; A9270; J0171; J1200; J2060; J2930; J3475; J3480

== ENCOUNTER 2025-01-04 23:02 | Emergency (ER) | payer MEDICAID, OTHER ==
[2025-01-04 23:31] LABS: BASOPHILS ABSOLUTE AUTO 0.07 K/uL (0.00-0.10); BASOPHILS PERCENT AUTO 1.0 % (0.1-1.3); EOSINOPHILS ABSOLUTE AUTO 0.36 K/uL (0.00-0.40); EOSINOPHILS PERCENT AUTO 5.2 % (0.0-5.4); IMMATURE GRAN PERCENT AUTO 0.1 % (0.0-0.7); LYMPHOCYTES ABSOLUTE AUTO 3.46 K/uL (0.8-3.3); LYMPHOCYTES PERCENT AUTO 49.9 % (11.4-47.7); MONOCYTES ABSOLUTE AUTO 0.55 K/uL (0.20-0.90); MONOCYTES PERCENT AUTO 7.9 % (3.3-12.6); NEUTROPHILS ABSOLUTE AUTO 2.49 K/uL (1.0-7.6); NEUTROPHILS PERCENT AUTO 35.9 % (40.0-78.1); PLATELET COUNT,PLT 269 K/uL (130-375); RED BLOOD CELL COUNT 4.82 M/uL (3.77-5.24); WHITE BLOOD CELL COUNT,WBC 6.9 K/uL (3.2-11.0)
[2025-01-04 23:33] LABS: IMMATURE GRAN ABSOLUTE AUTO 0.01 K/uL (0.00-0.23)
[2025-01-04 23:56] LABS: A/G RATIO 1.0 (1.2-2.2); ALANINE AMINOTRANSFERASE,ALT 138 U/L (12-78); ASPARTATE AMNIOTRANSFERASE,AST 122 U/L (15-37); BILIRUBIN TOTAL 0.4 mg/dL (0.2-1.0); BLOOD UREA NITROGEN,BUN 4 mg/dL (7-18); CARBON DIOXIDE,CO2 29 mmol/L (21-32); CHLORIDE,CL 100 mmol/L (100-108); CREATININE 0.8 mg/dL (0.6-1.0); ESTIMATED GFR 95 mL/min (>60); GLUCOSE RANDOM 95 mg/dL (74-106); POTASSIUM,K 3.3 mmol/L (3.6-5.2); PROTEIN TOTAL,TP 8.2 g/dL (6.4-8.2); SODIUM,NA 141 mmol/L (140-148); TSH ULTRASENSITIVE 3.251 uIU/mL (0.358-3.740)
[2025-01-04 23:56] LABS: AMPHETAMINES SCREEN, URINE NEGATIVE (NEGATIVE); METHADONE SCREEN, URINE NEGATIVE (NEGATIVE); METHAMPHETAMINES SCREEN, URINE NEGATIVE (NEGATIVE); OXYCODONE SCREEN,URINE NEGATIVE (NEGATIVE); PROPOXYPHENE SCREEN,URINE NEGATIVE (NEGATIVE); THC SCREEN,URINE 50 NG/ML NEGATIVE (NEGATIVE)
[2025-01-05 06:56] VITALS: BP 112/71; PULSE 91
== END 2025-01-05 07:07 | disposition home or self-care (01) ==
LOC: JP.ED 23:02
DX: F32.A Depression, unspecified (principal); F10.10 Alcohol abuse, uncomplicated; I10 Essential (primary) hypertension; J45.909 Unspecified asthma, uncomplicated; K21.9 Gastro-esophageal reflux disease without esophagitis; E11.9 Type 2 diabetes mellitus without complications; Z88.8 Allergy status to other drugs, medicaments and biological substances; Z79.51 Long term (current) use of inhaled steroids; Z79.899 Other long term (current) drug therapy; Y90.8 Blood alcohol level of 240 mg/100 ml or more
CPT/HCPCS: 36415; 80053; 80305-QW; 80307; 81025; 84443; 85025; 99285